=== PATIENT | male | born 1935 | race Caucasian/White ===

== ENCOUNTER 2016-11-12 00:39 | Day surgery (SDC) | payer MEDICARE ==
[~2016-11-12] VITALS: Ht 182.9 cm; Wt 99.8 kg
[~2016-11-12 00:39] MED LIST: ALBU18HF INH; ASPI-973 PO; ATOR80TA PO; BENZ200C44 PO; CEPH500T PO; GLUCOSAMINE PO; HYDR-4003 PO; OMEG500C PO; PRE20 PO; PRED50TA PO; ZES20T PO
[2016-11-12] MEDS ORDERED: Propofol 10,000 mCg/mL 20 mL Inj ONE (00:40)
[2016-11-12] MEDS ORDERED: Sodium Chloride LOK Flush 10 mL Syringe IV PRN (06:00)
[2016-11-12] MEDS ORDERED: 0.9% Sodium Chloride 1,000 ML IV SCH (06:00)
[2016-11-12] MEDS ORDERED: fentaNYL-PF 50 mCg/mL 2 mL Inj IVPUSH PRN (06:00)
[2016-11-12 11:05] VITALS: BP 142/89; PULSE 76; RESP 16; O2SAT 94
[2016-11-12] MEDS ORDERED: Lactated Ringer's 1,000 ML IV SCH (12:03)
[2016-11-12] MEDS ORDERED: Ondansetron 2 mg/mL 2 mL Inj IVPUSH PRN (12:05)
[2016-11-12] MEDS ORDERED: MetoCLOpramide 5 mg/mL 2 mL Inj IVPUSH PRN (12:05)
[2016-11-12 12:20] VITALS: BP 142/86; PULSE 76; RESP 16; O2SAT 96
[2016-11-12 12:30] VITALS: BP 147/93; PULSE 76; RESP 16; O2SAT 97
[2016-11-12 12:40] VITALS: BP 149/103; PULSE 73; RESP 14; O2SAT 95
--- NOTE | 2016-11-12 17:12 | PCM.HPANE ---
Patient Data Surgeon Admitting Provider: Attending Provider:Brandyn Hampton MD Primary Care Physician:David Monterroso MD Other Provider: Reason for Visit Dysphagia Ht/WT & BMI Height (Feet): 6 Height (Inches): 0 Weight (Kilograms): 99.79 Body Mass Index 29.00 Allergies Coded Allergies: No Known Drug Allergies (Verified Allergy, Unknown, 11/12/16) Past Anesthesia History Anesthesia History: Denies:: Abnormal Airway, Anesthesia Reactions, Difficult Intubation, Fam Anesthesia Reaction, Fam Malignant Hypertherm, Malignant Hyperthermia Diabetes History Hx Diabetes?: No MRSA MRSA: No Medications Blood Thinner: Aspirin Last Dose Blood Thinner: November 12, 2016 Home Meds Incl Beta Amadeo: No Reported Medications Albuterol Sulfate (Ventolin HFA Inhaler)200 Puff/18 Gm Inhaler1 Puff INH Q4 PRN For Wheezing #1 INHALER Ref 0 11/11/16 Monroe-3 Fatty Acids (Fish Oil)500 Mg Capsule.dr1,000 Mg PO BID 11/11/16 Benzonatate 200 Mg [id number] Mg PO TID 11/11/16 Atorvastatin (Lipitor)80 Mg Ceoeuw81 Mg PO DAILY Ref 0 11/11/16 Aspirin 81 Mg Wofwoo32 Mg PO DAILY Ref 0 11/11/16 Glucosamine Sulfate (Glucosamine) Tab3,000 Mg PO DAILY 04/13/10 Lisinopril-Expunged Drug, Do Not Renew! 20 Mg Zhfwhq20 Mg PO DAILY 04/13/10 Discontinued Reported Medications Prednisone (PredniSONE)50 Mg Foxnfz63 Mg PO MORNING Ref 0 11/11/16 Prednisone (PredniSONE)20 Mg Oeahnm73 Mg PO MORNING Ref 0 11/11/16 Hydrocodone-Acetaminophen 5-325 mg 1 Each Tablet1 Tablet PO For Pain Ref 0 11/11/16 Cephalexin 500 Mg Rbzxxy036 Mg PO QID #40 TABLET Ref 0 11/11/16 Metoprolol Tart-Expunged Drug, Do Not Renew! 25 Mg Bzwlqf62 Mg PO BID 04/13/10 Ubidecarenone (Coenzyme Q10)400 Mg Gfrauyw211 Mg PO DAILY 04/13/10 Simvastatin-Expunged Drug, Choose New Med! 40 Mg Dsgxeq77 Mg PO DAILY 04/13/10 History History of ENT Problems?: No HEENT History: Positive for:: Dysphagia Hearing Problem (DOES NOT WEAR OFTEN) Denies:: Abnormal Airway Cataracts Difficult Intubation Glaucoma Sinus Problem TMJ Denture Type: None Teeth Condition: Within Normal Limits Hx of Heart Problems?: Yes Cardiovascular History: Positive for:: Hypertension Valvular Heart Disease (AORTA REPAIR) Denies:: AICD Abdominal Aortic Aneurism Atrial Fibrillation Cardiac Surgery Chest Pain Congestive Heart Failure Coronary Artery Disease Edema Heart Murmur Irregular Heartbeat Pacemaker Peripheral Vascular Rheumatic Fever Thrombophlebitis Hx of Respiratory Problem?: Yes Respiratory History: Positive for:: Cough (RECENT BRONCHITIS) Dyspnea Denies:: Asthma COPD Chest Surgery Emphysema Hemoptysis Oxygen Administration Pneumonia Pulmonary Embolism Tuberculosis Use of C-PAP Machine Use of Inhalers / NEBS Hx Neurologic Problems?: No Neurological History: Denies:: Alzheimer's Disease CVA Dementia Dizziness Headaches Multiple Sclerosis Parkinson's Disease Peripheral Neuropathy Seizures TIA Hx of GI Problems?: Yes Gastrointestinal History: Denies:: Cirrhosis Diverticulitis Gall Bladder Disease Gastroesphageal Reflux Gastrointestinal Bleeding Heartburn Hepatitis Hiatal Hernia Liver Disease Rectal Bleeding Hx of Problems?: No Genitourinary History: Denies:: HX of Hemodialysis Kidney Stones Urinary Tract Infection HX of Peritoneal Dialysis: No Male Hx: Denies:: Prostate Problems Scrotal Mass Testicular Surgery Skin History: Denies:: History Skin Disorders? Pressure Ulcers Hx Musculoskeletal Problems?: Yes Musculoskeletal History: Positive for:: Joint Replacement (KNEE ) Denies:: Back Injury Degenerative Joint Fibromyalgia Musculoskeletal Trauma Myasthenia Gravis Osteoarthritis Rheumatoid Arthritis Systemic Lupus Hx of Psycho/Social Problems?: No Psycho Social History: Denies:: Anxiety Bipolar Disorder Hx Depression Suicide Attempt Hx Surgeries?: Yes (PROSTATE SX, AORTA REPAIR) Hx Any Other Health Problems?: Yes Other History: Positive for:: Hospitalization History Blood Transfusions: Denies:: Blood Transfuse Reaction Blood Transfusions Hx Diabetes: No Other Pertinent History: PT HAS IMPALNTED PROSTATE DEVICE CALLED A SPHINTER. IF PATIENT NEEDS TO BE CATHATERIZED, THE DEVICE NEEDS TO BE DISABLED. Hx Alcohol Use: Yes (MODERATE)Hx Substance Use: No Stop/Bang Treated for Sleep Apnea?: No Do You Have a CPAP Machine?: No S-Snoring: Do You Snore Loudly: No T-Tired: feel tired, fatigued: No O-Obsered: Observed not breath: No P-Blood Pressure: treated: Yes B- Body Mass Index > 35 kg/m2: No A- Age over 50: Yes N- Neck Large Circumference: No G- Gender Male: Yes NICK Total Score: 3 Risk Assessment Category Category 1A: Patient has history of documented sleep apnea, and HAS NOT received any narcotic, sedative or anesthesia administration during this stay. Category 1B: Patient has history of documented sleep apnea, and HAS received any narcotic , sedative or anesthesia administration during this stay Category 2: Patient has SUSPECTED Obstructive Sleep Apnea, and HAS received any narcotic , sedative or anesthesia administration during this stay. Category 3: Patient has SUSPECTED Obstructive Sleep Apnea and HAS NOT received narcotic, sedative or anesthesia administration during this stay. Category 4: Outpatient in Procedural Areas with known sleep apnea or who screen positive for High Risk via the STOP/BANG questionnaire. Exam Exam Vital Signs Vital Signs Date Time Temp Pulse Resp B/P Pulse Ox O2 Delivery O2 Flow Rate FiO2 11/12/16 11:05 35.9 76 16 142/89 94 Room Air General Appearance: Alert, Oriented X3, Cooperative, No Acute Distress HEENT/AIRWAY: MP 2, Neck Movement, Mouth Opening Lungs: Clear to Auscultation, Normal Air Movement Heart: Exam Unremarkable, Regular Rate/Rhythm, No Murmurs/Rubs/Gallops Plan Impression Patient chart reviewed, patient interviewed and anesthestic plan with risks, benefits, and alternatives discussed, and informed consent obtained. NPO per Anesth. Guidelines: Yes ASA Physical Status: ASA2 Mod Systemic Disease Anesthetic Plan: GA Bene/Risks/Altern/Consents: Yes HP Complete Prior to Induction: Yes Toney Lowry MD November 12, 2016 12:03
--- NOTE | 2016-11-12 17:14 | PCM.ANEP1 ---
Post Anesthesia PACU Phase 1 Assessment Vital Signs Vital Signs Date Time Temp Pulse Resp B/P Pulse Ox O2 Delivery O2 Flow Rate FiO2 11/12/16 12:40 73 14 149/103 95 Room Air 11/12/16 12:30 76 16 147/93 97 Room Air 11/12/16 12:20 76 16 142/86 96 Room Air 11/12/16 11:05 35.9 76 16 142/89 94 Room Air Anesthetic Administered: GA Level of Alertness: Awake, talking ROMAN's with Equal Strength: Yes Pain: No Nausea or Vomiting: No CV Function and Hydration: No Airway Device: Oxygen Delivery: Room Air Lungs: Clear to Auscultation, Normal Air Movement Dermatome Level: Full Sensation PACU Phase 2 Assessment Complications: No Follow up Care: N/A Patient Instructions Provided: N/A Toney Lowry MD November 12, 2016 17:14
--- NOTE | 2016-11-12 23:33 | ENDO ---
[address] [address] ENDOSCOPY PROCEDURE PATIENT: INEZ CONTRERAS : 1935 MR#: [id number] ADMIT: 11/12/2016 JOB ID: [id number] DATE OF SERVICE: 11/12/2016 TYPE OF OPERATION: Esophagogastroduodenoscopy with biopsy and esophageal dilatation. PREOPERATIVE DIAGNOSIS(ES): Dysphagia. POSTOPERATIVE DIAGNOSIS(ES): 1. Mild distal erosive esophagitis. 2. Mild nonerosive gastritis. 3. Successful TTS balloon CRE dilatation in a serial fashion up to 20 mm with a good mucosal tear at the distal esophagus. ANESTHESIA: Monitored anesthesia care. COMPLICATIONS: None. BLOOD LOSS: Minimal. DESCRIPTION OF PROCEDURE: After the risks and benefits were explained to the patient, informed consent was obtained. After anesthesia administered, upper endoscope was then inserted in the mouth, intubated into the esophagus, to the stomach, to the second portion of the duodenum. Mucosa carefully examined. After procedure was done, the scope was withdrawn, procedure terminated. FINDINGS: Upon inspection of the esophagus, there was mild distal erosive esophagitis. There were no concentric rings or vertical furrows that were seen. Z-line located at 40 cm from the incisors. No masses or ulcers or rings were seen in the esophagus. Upon entering the stomach, there is mild nonerosive gastritis. No masses or ulcers were seen. Retroflexion was normal. Duodenal bulb, first and second portions were normal. Biopsies were taken in the antrum, body of the stomach and mid and distal esophagus. Afterwards a TTS CRE balloon serial dilatation was performed in serial fashion up to 20 mm with a good mucosal tear at the distal esophagus. IMPRESSIONS: 1. Mild distal erosive esophagitis. 2. Mild nonerosive gastritis. 3. Successful CRE TTS balloon dilatation in serial fashion up to 20 mm in distal esophagus with good mucosal tear. RECOMMENDATIONS: 1. Await pathology results. 2. Protonix 40 mg by mouth once a day. 3. Follow up in GI clinic as needed. [facility]
--- NOTE | 2016-11-15 10:43 | PATH ---
SURGICAL PATHOLOGY Attending Physician:Brandyn Hampton MD CASE STATUS: Signed Out PATIENT NAME: INEZ CONTRERAS PID: [id number] : 1935 DATE COLLECTED:11/12/2016 20:47 SPECIMEN: 1: Stomach, Antrum, Biopsy 2: Gastric, Biopsy 3: Esophagus, Biopsy 4: Esophagus, Biopsy CLINICAL HISTORY: 1). ANTRUM BIOPSY 2). GASTRIC BODY BIOPSY 3). DISTAL ESOPHAGUS BIOPSY 4). MID ESOPHAGUS BIOPSY FINAL DIAGNOSIS: 1.GASTRIC ANTRUM BIOPSY: FRAGMENTS OF NORMAL-APPEARING ANTRAL MUCOSA NEGATIVE FOR SIGNIFICANT INFLAMMATION. Negative for evidence of Helicobacter. Negative for intestinal metaplasia. Negative for dysplasia and malignancy. 2.GASTRIC BODY BIOPSY: FRAGMENTS OF NORMAL-APPEARING GASTRIC FUNDIC MUCOSA WITH HYPEREMIA, BUT NEGATIVE FOR SIGNIFICANT INFLAMMATION. Negative for evidence of Helicobacter. Negative for intestinal metaplasia. Negative for dysplasia and malignancy. 3.DISTAL ESOPHAGUS BIOPSY: FRAGMENTS OF SQUAMOUS MUCOSA AND GASTRIC CARDIA-TYPE MUCOSA NEGATIVE FOR SPECIALIZED METAPLASIA OF TERRY' S-TYPE ESOPHAGUS. CHRONIC INFLAMMATION WITH REACTIVE EPITHELIAL CHANGES. Negative for dysplasia and malignancy. Negative for squamous intraepithelial eosinophils. 4.MID ESOPHAGUS BIOPSY: FRAGMENTS OF SQUAMOUS EPITHELIUM, NEGATIVE FOR ATYPIA. Negative for intraepithelial eosinophils. ICD10 code R13.10 GROSS DESCRIPTION: The specimen is received in four formalin filled containers labeled with the patient's name. 1). The specimen is sublabeled "antrum" and consists of 2 portions of tissue which aggregate to 0.4 x 0.3 x 0.2 CM. The specimen is entirely submitted in cassette 1A. 2). The specimen is sublabeled "gastric body" and consists of a 0.3 x 0.3 x 0.3 CM portion of tissue which is entirely submitted in cassette 2A. 3). The specimen is sublabeled "distal esophagus" and consists of 2 portions of tissue which aggregate to 0.3 x 0.2 x 0.2 CM. The specimen is entirely submitted in cassettes 3A. 4). The specimen is sublabeled "mid esophagus" and consists of portions of tissue which aggregate to 0.3 x 0.3 x 0.2 CM. The specimen is entirely submitted in cassette 4A. 11/12/2016 DAC MICRO DESCRIPTION: See diagnosis. ICD-9 CODES: CPT CODES: 1: 28839 2: 11617 3: 65811 4: 38588 Electronically Signed Out Allen Marroquin MD Formerly [facility] [address], [place] [address] Technical component performed at [facility], [address], [place], [address]
== END 2016-11-12 23:59 | disposition home or self-care (01) ==
LOC: END 00:39
PROVIDERS: ATTEND Internal Medicine Gastroenterology
DX: K22.10 Ulcer of esophagus without bleeding (principal); K29.70 Gastritis, unspecified, without bleeding; R13.10 Dysphagia, unspecified; I10 Essential (primary) hypertension; I47.1 Supraventricular tachycardia; I45.2 Bifascicular block; I44.1 Atrioventricular block, second degree; R00.2 Palpitations; I42.8 Other cardiomyopathies; E78.5 Hyperlipidemia, unspecified; Z79.82 Long term (current) use of aspirin; Z79.51 Long term (current) use of inhaled steroids; Z79.52 Long term (current) use of systemic steroids
CPT/HCPCS: 43239; 43249; J7120